=== PATIENT | female | born 1965 ===

== ENCOUNTER 2017-10-16 17:54 | Emergency (ER) | payer BC ==
[~2017-10-16] VITALS: Ht 144.8 cm; Wt 59.4 kg
[2017-10-16 18:00] VITALS: BP 156/82
[2017-10-16] MEDS ORDERED: INDO50CA PO (19:58)
== END 2017-10-16 20:14 | disposition home or self-care (01) ==
LOC: ER 17:55
DX: M10.9 Gout, unspecified (principal); I10 Essential (primary) hypertension; E11.9 Type 2 diabetes mellitus without complications
CPT/HCPCS: 73630; 82948; 99284